=== PATIENT | male | born 1960 | race Caucasian/White ===

== ENCOUNTER 2022-01-27 18:13 | Inpatient (IN) ==
[2022-01-27 18:24] VITALS: BMI 34.2
[2022-01-27] MEDS ORDERED: CARDIZEM INJ 50 MG VIAL IVP ONE (18:25)
[2022-01-27] MEDS ORDERED: CARDIZEM INJ 125 MG VIAL ONE ×2 (18:26→18:28)
[2022-01-27] MEDS ORDERED: NS 100 ML IV 100 ML ONE (18:27)
[2022-01-27] MEDS: DILTIAZEM 125mg/125mL-0.7%NACL 125 MG/125 ML PLAST..BAG IV PRN (18:40)
[2022-01-27 18:46] LABS: HEMOGLOBIN 17.4 g/dL (13.5-18.0)
[2022-01-27 18:50] LABS: BASOPHILS # (AUTO) 0.1 X10^3/uL (0.0-0.1); BASOPHILS % (AUTO) 0.7 % (0.2-1.0); EOSINOPHILS # (AUTO) 0.5 x10^3/uL (0.0-0.2); EOSINOPHILS % (AUTO) 3.1 % (0.9-2.9); HEMATOCRIT 51.3 % (42.0-54.0); LYMPHOCYTES # (AUTO) 1.9 X10^3/uL (1.3-2.9); LYMPHOCYTES % (AUTO) 13.3 % (21.0-51.0); MEAN CORPUSCULAR HEMOGLOBIN 30.1 pg (27.0-34.0); MEAN CORPUSCULAR HGB CONC 33.9 g/dL (33.0-35.0); MEAN CORPUSCULAR VOLUME 88.8 fL (80.0-100.0); MEAN PLATELET VOLUME 8.1 fL (7.4-11.0); MONOCYTES % (AUTO) 6.6 % (0.0-13.0); NEUTROPHILS % (AUTO) 76.3 % (42.0-75.0); RED BLOOD COUNT 5.78 X10^6/uL (4.7-6.0); WHITE BLOOD COUNT 14.4 X10^3/uL (3.6-10.0)
--- NOTE | 2022-01-27 18:55 | DR.CP ---
HPI Time Seen Time Seen by Provider: 01/27/22 18:55 PCP Primary Care Physician: Dr. Hernandez Complaint Chief Complaint Doctor Comments: SOB, CHEST PAIN AND CHEST PRESSURE WITH HEART FLUTTERING THAT STARTED TODAY. WORSE THIS EVENING. NO FEVER OR COUGH HAVE GENERALIZED WEAKNESS. Chief Complaint:: pt reports, "I was feeling SOB and having some chest pain/ chest pressure at home so I called EMS." Per EMS patient was noted to be in AFib upon arrival with no known hx. Pt rec'd ASA 325 mg PO and pt reports the ASA helped with the CP. Pt placed on bus driver/monitor -noted afib with RVR- aware - pt A&O -STAT EKG ordered at this time. Source History Provided: Patient Mode of Arrival Mode of Arrival: Stretcher Timing Onset of Chief Complaint: 01/27/22 Location Chest Pain Radiation Location: None Associated Signs and Symptoms Associated Signs and Symptoms: Shortness of Breath, Palpitations and Diaphoresis PMH PMH Past Medical History: Yes Past Medical History: Coronary Artery Disease, Diabetes, Hypertension and Seizures Past Surgical History: Yes Surgical History: Angioplasty/Stents Family History History of Family Medical Conditions: Yes Family Medical History: Diabetes Mellitus, [place], Heart Failure and Hypertension Social History Alcohol Use: None Do you use any recreational Drugs:: No Lives With: Family Lives Where: Home Infectious screening In the last 2 months have you had wt loss of >10#?: NO Have you had fever, night sweats or hemotysis?: No Have you traveled outside the country in the last 6 months?: No Isolation: Standard PE Vitals Vitals: Temperature 97.7 F Pulse Rate 99 Respiratory Rate 26 Blood Pressure [Right Arm] 125/76 Blood Pressure 111/59 O2 Sat by Pulse Oximetry 95 ROR Labs Reviewed Result Diagrams: 01/27/22 18:30 01/27/22 18:30 Laboratory: WBC 14.4 X10^3/uL (3.6-10.0) H 01/27/22 18:30 RBC 5.78 X10^6/uL (4.7-6.0) 01/27/22 18:30 Hgb 17.4 g/dL (13.5-18.0) 01/27/22 18:30 Hct 51.3 % (42.0-54.0) 01/27/22 18:30 MCV 88.8 fL (80.0-100.0) 01/27/22 18:30 MCH 30.1 pg (27.0-34.0) 01/27/22 18: MCHC 33.9 g/dL (33.0-35.0) 01/27/22 18: RDW 14.0 % (11.6-16.5) 01/27/22 18: Plt Count 233 X10^3/uL (150.0-450.0) 01/27/22 18: MPV 8.1 fL (7.4-11.0) 01/27/22 18:30 Neut % (Auto) 76.3 % (42.0-75.0) H 01/27/22 18: Lymph % (Auto) 13.3 % (21.0-51.0) L 01/27/22 18: [place] % (Auto) 6.6 % (0.0-13.0) 01/27/22 18: Eos % (Auto) 3.1 % (0.9-2.9) H 01/27/22 18: Baso % (Auto) 0.7 % (0.2-1.0) 01/27/22 18:30 Neut # (Auto) 11.0 x10^3/uL (2.2-4.8) H 01/27/22 18:30 Lymph # (Auto) 1.9 X10^3/uL (1.3-2.9) 01/27/22 18:30 [place] # (Auto) 1.0 x10^3/uL (0.3-0.8) H 01/27/22 18:30 Eos # (Auto) 0.5 x10^3/uL (0.0-0.2) H 01/27/22 18:30 Baso # (Auto) 0.1 X10^3/uL (0.0-0.1) 01/27/22 18: Absolute Nucleated RBC 0.1 /100WBC 01/27/22 18:30 Sodium 134 mmol/L (136-145) L 01/27/22 18:30 Corrected Sodium 140 mmol/L (136-145) 01/27/22 18: Potassium 4.2 mmol/L (3.5-5.1) 01/27/22 18:30 Chloride 101 mmol/L (98-107) 01/27/22 18:30 Carbon Dioxide 22.1 mmol/L (21-32) 01/27/22 18:30 BUN 9 mg/dL (7-18) 01/27/22 18:30 Creatinine 1.15 mg/dL (0.70-1.30) 01/27/22 18:30 Est GFR (MDRD) Af Amer > 60 (>60) 01/27/22 18:30 Est GFR (MDRD) Non-Af > 60 (>60) 01/27/22 18:30 Glucose 347 mg/dL (65-99) H 01/27/22 18:30 POC Glucose (mg/dL) 243 mg/dL (65-99) H 01/28/22 01:25 Calcium 8.1 mg/dL (8.5-10.1) L 01/27/22 18:30 Corrected Calcium TNP 01/27/22 18:30 Total Bilirubin 0.70 mg/dL (0.2-1.0) 01/27/22 18:30 AST 36 Units/L (15-37) 01/27/22 18:30 ALT 44 Units/L (12-78) 01/27/22 18:30 Alkaline Phosphatase 132 Units/L (46-116) H 01/27/22 18:30 Creatine Kinase 44 Units/L (39-308) 01/27/22 18:30 Troponin I High Sens 41.6 ng/L (4.0-60.0) 01/27/22 18:30 B-Natriuretic Peptide 26.4 pg/mL (0-79) 01/27/22 18:30 Total Protein 7.6 g/dL (6.4-8.2) 01/27/22 18:30 Albumin 3.5 g/dL (3.4-5.0) 01/27/22 18:30 Globulin 4.1 g/dL (2.5-4.5) 01/27/22 18:30 Albumin/Globulin Ratio 0.9 Ratio (1.1-2.1) L 01/27/22 18:30 Specimen Type Clean catch urine 01/28/22 01:04 Urine Color Dark yellow (YELLOW) 01/28/22 01:04 Urine Appearance Slightly hazy (CLEAR) 01/28/22 01:04 Urine pH 5.0 (5.0 - 8.0) 01/28/22 01:04 Ur Specific [place] 1.025 (1.000-1.030) 01/28/22 01:04 Urine Protein 3+ (NEGATIVE) 01/28/22 01:04 Urine Glucose (UA) 4+ (NEGATIVE) 01/28/22 01:04 Urine Ketones 1+ (NEGATIVE) 01/28/22 01:04 Urine Blood 2+ (NEGATIVE) 01/28/22 01:04 Urine Nitrite Negative (NEGATIVE) 01/28/22 01:04 Urine Bilirubin Negative (NEGATIVE) 01/28/22 01:04 Urine Urobilinogen Normal (NORMAL) 01/28/22 01:04 Ur Leukocyte Esterase Negative (NEGATIVE) 01/28/22 01:04 Urine RBC 5-10 /HPF (0-3) A 01/28/22 01:04 Urine WBC 0-2 /HPF (0-5) 01/28/22 01:04 Ur Squamous Epith Cells Few /HPF (NEGATIVE) 01/28/22 01:04 Amorphous Sediment 1+ /HPF (NEGATIVE) 01/28/22 01:04 Urine Bacteria Trace /HPF (NEGATIVE) 01/28/22 01:04 Hyaline Casts Many /LPF (NEGATIVE) 01/28/22 01:04 Granular Casts Many /LPF (NEGATIVE) 01/28/22 01:04 Other Casts Few /LPF (NEGATIVE) 01/28/22 01:04 Urine Mucus Numerous /HPF (NEGATIVE) 01/28/22 01:04 Ur Culture Indicated? No/not indicated 01/28/22 01:04 Acetone, Semi-Quant Negative (NEGATIVE) 01/27/22 18:30 SARS-CoV-2 (PCR) Negative (NEGATIVE) 01/27/22 23:18 Influenza Type A (PCR) Negative (NEGATIVE) 01/27/22 23:18 Influenza Type B (PCR) Negative (NEGATIVE) 01/27/22 23:18 RSV (PCR) Negative (NEGATIVE) 01/27/22 23:18 Opioid Opioid Risk Tool Age (Sarmad box if 16-45): No History of Preadolescent Sexual Abuse: No Total: 0 Total Score Risk Category: Low Risk Copyright: Brenden KYLE predicting aberrant behaviors Discharge Plan Discharge Plan Patient Disposition: ADMITTED INPATIENT Condition: Stable Orders to Discharge Patient Discharge Orders: Transfer (Routine); Ordered 01/28/22 Ordered By: CANDACE BOB
[2022-01-27 19:03] LABS: ALANINE AMINOTRANSFERASE 44 Units/L (12-78); ALBUMIN 3.5 g/dL (3.4-5.0); ALKALINE PHOSPHATASE 132 Units/L (46-116); ASPARTATE AMINO TRANSFERASE 36 Units/L (15-37); BLOOD UREA NITROGEN 9 mg/dL (7-18); CALCIUM 8.1 mg/dL (8.5-10.1); CARBON DIOXIDE 22.1 mmol/L (21-32); CHLORIDE 101 mmol/L (98-107); COR NA(FOR HYPERGLY) 140 mmol/L (136-145); CREATINE KINASE 44 Units/L (39-308); CREATININE 1.15 mg/dL (0.70-1.30); SODIUM 134 mmol/L (136-145); TOTAL PROTEIN 7.6 g/dL (6.4-8.2); eGFR NON BLACK RACES > 60 (>60)
[2022-01-27] MEDS ORDERED: LOPRESSOR INJ 5 MG AMP IVP ONE (19:28)
[2022-01-27] MEDS ORDERED: LOPRESSOR INJ 5 MG AMP ONE (19:29)
[2022-01-27] MEDS ORDERED: NS 1,000 ML IV 1,000 ML IV ONE ×2 (19:49→20:22)
[2022-01-27] MEDS ORDERED: NS 1,000 ML IV 1,000 ML ONE ×3 (19:53→23:21)
[2022-01-27] MEDS: NS 1,000 ML IV 1,000 ML IV SCH (23:24)
[2022-01-28 01:22] LABS: APPEARANCE,URINE SLIGHTLY HAZY (CLEAR); BILIRUBIN,URINE NEGATIVE (NEGATIVE); BLOOD/HEMOGLOBIN,URINE 2+ (NEGATIVE); COLOR,URINE DARK YELLOW (YELLOW); GLUCOSE, URINE 4+ (NEGATIVE); KETONES,URINE 1+ (NEGATIVE); LEUKOCYTE ESTERASE ,URINE NEGATIVE (NEGATIVE); NITRITES,URINE NEGATIVE (NEGATIVE); PROTEIN,URINE 3+ (NEGATIVE); UROBILINOGEN,URINE NORMAL (NORMAL)
[2022-01-28 01:41] LABS: BACTERIA,URINE TRACE /HPF (NEGATIVE); GRANULAR CASTS,URINE MANY /LPF (NEGATIVE); HYALINE CASTS, URINE MANY /LPF (NEGATIVE); OTHER CASTS, URINE FEW /LPF (NEGATIVE); SQUAMOUS EPITHELIAL CELL,UR FEW /HPF (NEGATIVE)
[2022-01-28] MEDS ORDERED: LOPRESSOR TAB 25 MG PO ONE (02:19)
[2022-01-28] MEDS ORDERED: LOPRESSOR TAB 25 MG ONE (02:21)
--- NOTE | 2022-01-28 03:09 | RAD ---
HISTORY"I was feeling SOB and having some chest pain/ chest pressure at home so I called EMS." Per EMS patient was noted to be in AFib upon arrival with no known hx.STUDYCHEST, 1 VIEWCOMPARISONNone.TECHNIQUEA single frontal view of the chest was obtained.FINDINGSThere are multiple EKG leads and wires seen overlying the patient. There is mild to moderate cardiomegaly. There is no focal infiltrate. There is no effusion. There is no pneumothorax. The osseous structures are intact.IMPRESSIONNo focal infiltrate or effusion. Mild to moderate cardiomegaly.Electronically signed by: Breanne Nuñez (Jan 28, 2022 03:07:05)
[2022-01-28] MEDS ORDERED: GLUCOPHAGE ONE ×2 (08:23→20:41)
[2022-01-28] MEDS: ASPIRIN EC 81 MG PO SCH (08:24)
[2022-01-28] MEDS: LOPRESSOR TAB 25 MG PO SCH ×2 (08:24→21:23)
[2022-01-28] MEDS: GLUCOPHAGE PO SCH ×2 (08:24→21:23)
[2022-01-28] MEDS: PLAVIX PO SCH (08:24)
[2022-01-28] MEDS: NS 1,000 ML IV 1,000 ML IV SCH ×2 (08:24→15:49)
--- NOTE | 2022-01-28 17:53 | DR.H&P ---
H&P - History & Physical for Day of: H&P Date: 01/28/22 - Chief Complaint Chief Complaint: HEART RACING, SOB - History of Present Illness History of Present Illness: PT IS 61 WM, ER ADMISSION WITH CO SUDDEN ONSET OF HEART RACING AND SOB. PT WAS IN AFIB WITH RVR ON ARRIVAL TO ER. PT HAS PMH OF CAD, WITH 2 PREVIOUS KNOWN CARDIAC STENTS, LAST ONE PLACED AT [facility] IN [place]. PT HAS PMH OF DM AND 2PPD SMOKER. PT ADMITTED FOR TREATMENT AND EVALUATION OF ACUTE ILLNESS. - Past Medical History Past Medical History: Coronary Artery Disease, Hypertension, Diabetes, Seizures - Past Surgical History Surgical History: LICENSED NURSE PRACTITIONER Surgery - Family History Family Medical History: Diabetes Mellitus, Cancer - Social History Does patient currently use any type of tobacco product: Yes Have you used tobacco products in the last 12 months: Yes Type of Tobacco Use: Cigarettes How many years tobacco product used: 30 Does any household member use tobacco: No Alcohol Use: None - Medications Home Medications: No Known Drug Allergies Allergy (Verified 11/24/18 13:17) CONTINUE taking the following medications albuterol sulfate 90 mcg/actuation aerosol inhaler 1 - 2 inh inhalation PRN PRN 01/27/22 [History] venlafaxine 37.5 mg capsule,extended release 24 hr 1 cap PO DAILY 01/27/22 [History] - Review of Systems Constitutional: Weakness Eyes: No Symptoms Reported ENT: No Symptoms Reported Respiratory: Shortness of Breath Cardiovascular: Palpitations Gastrointestinal: Nausea Genitourinary: No Symptoms Reported Musculoskeletal: No Symptoms Reported Skin: No Symptoms Reported Neurological: No Symptoms Reported - Physical Exam Vital Signs: Temperature 98.0 F Pulse Rate [Right] 94 Pulse Rate 97 Respiratory Rate 22 Blood Pressure [Right Arm] 112/80 Blood Pressure 111/64 O2 Sat by Pulse Oximetry 95 Oriented: Normal Eyes: Normal Ear: Normal Nose: Normal Throat: Normal Respiratory: RLL Diminished, LLL Diminished Cardiovascular: Normal (CONTROLLED RATE AND RHYTHM) : Normal Auscultation: Bowel Sounds: Normal Palpation: Normal Tenderness: Normal Skin: Decreased Turgur Musculoskeletal: Deformity (LEFT UPPER EXTREMITY (CHRONIC)) Psychiatric: Anxiety Affect: Anxious Speech Pattern: Clear, Appropriate - Assessment/Plan (1) Atrial fibrillation with RVR Status: Acute Plan: ADMIT, ICU CARDIZEM DRIP. SERIAL EKG AND CARDIAC ENZYMES. PRN SUPPLEMENTAL O2. STRICT I&OS, BS CONTROL, SSI COVERAGE. BP CONTROL (2) SOB (shortness of breath) Status: Acute (3) CAD (coronary artery disease) Status: Acute (4) Diabetes Status: Acute (5) Hypertension Status: Acute - Allergies Allergies/Adverse Reactions: Allergies Allergy/AdvReac Type Severity Reaction Status Date / Time No Known Drug Allergies Allergy Verified 11/24/18 13:17
[2022-01-28] MEDS ORDERED: ULTRAM PO PRN (17:57)
[2022-01-28 18:32] LABS: ALANINE AMINOTRANSFERASE 45 Units/L (12-78); ALBUMIN 2.9 g/dL (3.4-5.0); ALKALINE PHOSPHATASE 103 Units/L (46-116); ASPARTATE AMINO TRANSFERASE 22 Units/L (15-37); BLOOD UREA NITROGEN 12 mg/dL (7-18); CALCIUM 7.4 mg/dL (8.5-10.1); CARBON DIOXIDE 22.2 mmol/L (21-32); CHLORIDE 105 mmol/L (98-107); COR CA(FOR HYPOALB) 8.3 mg/dL (8.5-10.1); CREATININE 0.94 mg/dL (0.70-1.30); SODIUM 136 mmol/L (136-145); TOTAL PROTEIN 6.4 g/dL (6.4-8.2); eGFR NON BLACK RACES > 60 (>60)
[2022-01-28 18:35] LABS: FREE T4 (FREE THYROXINE) 7.4 ng/dL (0.76-1.46); TSH (3RD GENERATION) 0.432 uIU/mL (0.358-3.74)
[2022-01-28 18:40] LABS: COR NA(FOR HYPERGLY) 139 mmol/L (136-145)
[2022-01-28] MEDS: ZESTRIL TAB 5 MG PO SCH (21:22)
[2022-01-28] MEDS: LIPITOR TAB 40 MG PO SCH (21:23)
--- NOTE | 2022-01-29 00:34 | RAD ---
HISTORYCHFSTUDYCHEST, 1 VIEWCOMPARISONSeptember 2021.TECHNIQUEA single frontal view of the chest was obtained.FINDINGSThere are multiple EKG leads and wires seen overlying the patient. There is cardiomegaly. There is no focal infiltrate. There is no effusion. There is no pneumothorax. The osseous structures are intact.IMPRESSIONNo focal infiltrate or effusion.Electronically signed by: Breanne Nuñez (Jan 29, 2022 00:32:39)
[2022-01-29] MEDS ORDERED: MAALOX or MYLANTA ONE (01:58)
[2022-01-29] MEDS: NS 1,000 ML IV 1,000 ML IV SCH ×5 (02:00→20:25)
[2022-01-29] MEDS ORDERED: MAALOX or MYLANTA PO PRN (03:07)
[2022-01-29 05:41] LABS: BASOPHILS % (AUTO) 0.2 % (0.2-1.0); EOSINOPHILS % (AUTO) 0.1 % (0.9-2.9); HEMATOCRIT 46.3 % (42.0-54.0); HEMOGLOBIN 15.6 g/dL (13.5-18.0); LYMPHOCYTES # (AUTO) 0.5 X10^3/uL (1.3-2.9); LYMPHOCYTES % (AUTO) 3.8 % (21.0-51.0); MEAN CORPUSCULAR HEMOGLOBIN 29.6 pg (27.0-34.0); MEAN CORPUSCULAR HGB CONC 33.6 g/dL (33.0-35.0); MEAN PLATELET VOLUME 8.2 fL (7.4-11.0); MONOCYTES # (AUTO) 1.1 x10^3/uL (0.3-0.8); MONOCYTES % (AUTO) 8.4 % (0.0-13.0); NEUTROPHILS # (AUTO) 11.9 x10^3/uL (2.2-4.8); NEUTROPHILS % (AUTO) 87.5 % (42.0-75.0); RED BLOOD COUNT 5.26 X10^6/uL (4.7-6.0); RED CELL DISTRIBUTION WIDTH 14.2 % (11.6-16.5); WHITE BLOOD COUNT 13.6 X10^3/uL (3.6-10.0)
[2022-01-29 06:04] LABS: ALANINE AMINOTRANSFERASE 43 Units/L (12-78); ALKALINE PHOSPHATASE 99 Units/L (46-116); ASPARTATE AMINO TRANSFERASE 23 Units/L (15-37); BLOOD UREA NITROGEN 11 mg/dL (7-18); CALCIUM 7.6 mg/dL (8.5-10.1); CARBON DIOXIDE 21.1 mmol/L (21-32); CHLORIDE 101 mmol/L (98-107); CHOL/HDL RATIO 4.8 (0.0-5.0); CHOLESTEROL 126 mg/dL (0-200); COR CA(FOR HYPOALB) 8.4 mg/dL (8.5-10.1); COR NA(FOR HYPERGLY) 136 mmol/L (136-145); CREATININE 0.84 mg/dL (0.70-1.30); HDL CHOLESTEROL 26 mg/dL (40-60); SODIUM 134 mmol/L (136-145); TOTAL PROTEIN 6.6 g/dL (6.4-8.2); TRIGLYCERIDES 97 mg/dL (0-150); eGFR NON BLACK RACES > 60 (>60)
[2022-01-29] MEDS ORDERED: MICRO K EXTEN CAP 10 MEQ PO PRN (06:22)
[2022-01-29] MEDS ORDERED: POTASSIUM CHL 40 MEQ/NS 0.45% 500 ML IV PRN (06:22)
[2022-01-29] MEDS ORDERED: POTASSIUM CHL 60 MEQ/NS 0.45% 500 ML IV PRN (06:22)
[2022-01-29] MEDS ORDERED: POTASSIUM CHLORIDE LIQ 20 MEQ UDC PO PRN (06:22)
[2022-01-29] MEDS ORDERED: KLOR-CON PO PRN (06:22)
[2022-01-29] MEDS ORDERED: K-RIDER 10 MEQ/NS 100 ML 10 MEQ/100 ML BAG IV PRN (06:22)
[2022-01-29] MEDS: DILTIAZEM 125mg/125mL-0.7%NACL 125 MG/125 ML PLAST..BAG IV PRN (07:17)
[2022-01-29] MEDS: PROVENTIL NEB TX 0.083% 2.5MG/ 3ML NEB PRN ×2 (08:28→20:25)
[2022-01-29] MEDS ORDERED: GLUCOPHAGE ONE ×2 (08:34→19:59)
[2022-01-29] MEDS: EFFEXOR XR 37.5 MG CAP 24-HR PO SCH (08:36)
[2022-01-29] MEDS: ASPIRIN EC 81 MG PO SCH (08:36)
[2022-01-29] MEDS: GLUCOPHAGE PO SCH ×3 (08:37→20:26)
[2022-01-29] MEDS: LOPRESSOR TAB 25 MG PO SCH ×2 (08:38→20:48)
[2022-01-29] MEDS: ZESTRIL TAB 5 MG PO SCH (08:38)
[2022-01-29] MEDS: PLAVIX PO SCH (08:38)
[2022-01-29] MEDS: K-DUR TAB 20 MEQ PO PRN (08:40)
[2022-01-29] MEDS: ROCEPHIN VIAL 1 GRAM 1 G in NS 100 ML IV 100 ML IV SCH (14:34)
[2022-01-29] MEDS: MAGNESIUM SULFATE 1 GRAM/100 mL PREMIX 1 G/100 ML BAG IV PRN ×2 (15:51→16:54)
--- NOTE | 2022-01-29 17:46 | PCM.PROG ---
Progress Note - Progress Note for Day of Date of Exam: 01/29/22 - Subjective Subjective: PT IS 61WM ER ADMISSION WITH AFIB RVR SOB. PT HAS PMH OF CAD. PT DENIES CHEST PAIN SINCE ADMISSION. PT CO DIARRHEA THIS AM AND ASKING FOR LOMOTIL. PT REPORTS HIS DAUGHTER CURRENTLY HAS COVID AND HE LIVES WITH HER. PT TESTED NEGATIVE FOR COVID ON ADMISSION BUT HAD CHEST CONGESTION PRESENT. CXR WITHOUT ACUTE FINDINGS. PT STARTED ON ROCEPHIN IV AND SPUTUM CULTURE ORDERED. PLAN TO CONTINUE SERIAL CE AND EKG MONITORING, BP CONTROL - Past Medical Family Social History Past Med/Fam/Surg Hx: Changes noted (describe) Allergies: Allergies No Known Drug Allergies Allergy (Verified 11/24/18 13:17) - Review of Systems ROS: No change since H&P - Vital Signs and I&O's Vital Signs: Temperature 98.8 F Pulse Rate [Right] 110 Pulse Rate 92 Respiratory Rate 4 Blood Pressure [Right Arm] 114/64 Blood Pressure 96/54 O2 Sat by Pulse Oximetry 94 Intake and Output: Intake & Output 01/27/22 01/28/22 01/29/22 01/30/22 11:59 11:59 11:59 11:59 Intake Total 1845 / 1845 3687 / 3687 1322 / 1322 Output Total 400 / 400 1300 / 1300 800 / 800 Balance 1445 / 1445 2387 / 2387 522 / 522 - Physical Exam Oriented: Normal Eyes: Normal Ear: Normal Nose: Normal Throat: Normal Respiratory: Diminished, Rhonchi Cardiovascular: Normal (CONTROLLED RATE AND RHYTHM) : Normal Auscultation: Bowel Sounds: Normal Tenderness: Normal Skin: Decreased Turgur Musculoskeletal: Deformity (LEFT UPPER EXTREMITY (CHRONIC)) Psychiatric: Anxiety Affect: Anxious Speech Pattern: Clear, Appropriate - Laboratory and Diagnostics Result Diagrams: 01/29/22 04:55 01/29/22 04:55 Labs: Laboratory WBC 13.6 X10^3/uL (3.6-10.0) H 01/29/22 04:55 RBC 5.26 X10^6/uL (4.7-6.0) 01/29/22 04:55 Hgb 15.6 g/dL (13.5-18.0) 01/29/22 04:55 Hct 46.3 % (42.0-54.0) 01/29/22 04:55 MCV 88.0 fL (80.0-100.0) 01/29/22 04:55 MCH 29.6 pg (27.0-34.0) 01/29/22 04:55 MCHC 33.6 g/dL (33.0-35.0) 01/29/22 04:55 RDW 14.2 % (11.6-16.5) 01/29/22 04:55 Plt Count 151 X10^3/uL (150.0-450.0) 01/29/22 04:55 MPV 8.2 fL (7.4-11.0) 01/29/22 04:55 Neut % (Auto) 87.5 % (42.0-75.0) H 01/29/22 04:55 Lymph % (Auto) 3.8 % (21.0-51.0) L 01/29/22 04:55 [place] % (Auto) 8.4 % (0.0-13.0) 01/29/22 04:55 Eos % (Auto) 0.1 % (0.9-2.9) L 01/29/22 04:55 Baso % (Auto) 0.2 % (0.2-1.0) 01/29/22 04:55 Neut # (Auto) 11.9 x10^3/uL (2.2-4.8) H 01/29/22 04:55 Lymph # (Auto) 0.5 X10^3/uL (1.3-2.9) L 01/29/22 04:55 [place] # (Auto) 1.1 x10^3/uL (0.3-0.8) H 01/29/22 04:55 Eos # (Auto) 0.0 x10^3/uL (0.0-0.2) 01/29/22 04:55 Baso # (Auto) 0.0 X10^3/uL (0.0-0.1) 01/29/22 04:55 Absolute Nucleated RBC 0.0 /100WBC 01/29/22 04:55 Sodium 134 mmol/L (136-145) L 01/29/22 04:55 Corrected Sodium 136 mmol/L (136-145) 01/29/22 04:55 Potassium 3.7 mmol/L (3.5-5.1) 01/29/22 04:55 Chloride 101 mmol/L (98-107) 01/29/22 04:55 Carbon Dioxide 21.1 mmol/L (21-32) 01/29/22 04:55 BUN 11 mg/dL (7-18) 01/29/22 04:55 Creatinine 0.84 mg/dL (0.70-1.30) 01/29/22 04:55 Est GFR (MDRD) Af Amer > 60 (>60) 01/29/22 04:55 Est GFR (MDRD) Non-Af > 60 (>60) 01/29/22 04:55 Glucose 187 mg/dL (65-99) H 01/29/22 04:55 POC Glucose (mg/dL) 223 mg/dL (65-99) H 01/29/22 15:45 Calcium 7.6 mg/dL (8.5-10.1) L 01/29/22 04:55 Corrected Calcium 8.4 mg/dL (8.5-10.1) L 01/29/22 04:55 Magnesium 1.7 mg/dL (1.7-2.9) 01/29/22 04:55 Total Bilirubin 0.70 mg/dL (0.2-1.0) 01/29/22 04:55 AST 23 Units/L (15-37) 01/29/22 04:55 ALT 43 Units/L (12-78) 01/29/22 04:55 Alkaline Phosphatase 99 Units/L (46-116) 01/29/22 04:55 Creatine Kinase 57 Units/L (39-308) 01/29/22 04:55 Troponin I High Sens 288.4 ng/L (4.0-60.0) H* 01/29/22 04:55 B-Natriuretic Peptide 26.4 pg/mL (0-79) 01/27/22 18:30 Total Protein 6.6 g/dL (6.4-8.2) 01/29/22 04:55 Albumin 3.0 g/dL (3.4-5.0) L 01/29/22 04:55 Globulin 3.6 g/dL (2.5-4.5) 01/29/22 04:55 Albumin/Globulin Ratio 0.8 Ratio (1.1-2.1) L 01/29/22 04:55 Triglycerides 97 mg/dL (0-150) 01/29/22 04:55 Cholesterol 126 mg/dL (0-200) 01/29/22 04:55 LDL Cholesterol, Calc 81 mg/dL (0-100) 01/29/22 04:55 HDL Cholesterol 26 mg/dL (40-60) L 01/29/22 04:55 Cholesterol/HDL Ratio 4.8 (0.0-5.0) 01/29/22 04:55 Free T4 7.40 ng/dL (0.76-1.46) H 01/28/22 17:58 TSH 3rd Generation 0.432 uIU/mL (0.358-3.74) 01/28/22 17:58 Specimen Type Clean catch urine 01/28/22 01:04 Urine Color Dark yellow (YELLOW) 01/28/22 01:04 Urine Appearance Slightly hazy (CLEAR) 01/28/22 01:04 Urine pH 5.0 (5.0 - 8.0) 01/28/22 01:04 Ur Specific [place] 1.025 (1.000-1.030) 01/28/22 01:04 Urine Protein 3+ (NEGATIVE) 01/28/22 01:04 Urine Glucose (UA) 4+ (NEGATIVE) 01/28/22 01:04 Urine Ketones 1+ (NEGATIVE) 01/28/22 01:04 Urine Blood 2+ (NEGATIVE) 01/28/22 01:04 Urine Nitrite Negative (NEGATIVE) 01/28/22 01:04 Urine Bilirubin Negative (NEGATIVE) 01/28/22 01:04 Urine Urobilinogen Normal (NORMAL) 01/28/22 01:04 Ur Leukocyte Esterase Negative (NEGATIVE) 01/28/22 01:04 Urine RBC 5-10 /HPF (0-3) A 01/28/22 01:04 Urine WBC 0-2 /HPF (0-5) 01/28/22 01:04 Ur Squamous Epith Cells Few /HPF (NEGATIVE) 01/28/22 01:04 Amorphous Sediment 1+ /HPF (NEGATIVE) 01/28/22 01:04 Urine Bacteria Trace /HPF (NEGATIVE) 01/28/22 01:04 Hyaline Casts Many /LPF (NEGATIVE) 01/28/22 01:04 Granular Casts Many /LPF (NEGATIVE) 01/28/22 01:04 Other Casts Few /LPF (NEGATIVE) 01/28/22 01:04 Urine Mucus Numerous /HPF (NEGATIVE) 01/28/22 01:04 Ur Culture Indicated? No/not indicated 01/28/22 01:04 Acetone, Semi-Quant Negative (NEGATIVE) 01/27/22 18:30 SARS-CoV-2 (PCR) Negative (NEGATIVE) 01/27/22 23:18 Influenza Type A (PCR) Negative (NEGATIVE) 01/27/22 23:18 Influenza Type B (PCR) Negative (NEGATIVE) 01/27/22 23:18 RSV (PCR) Negative (NEGATIVE) 01/27/22 23:18 - Plan (1) Atrial fibrillation with RVR Status: Acute Plan: ICU, CARDIZEM PO, RATE CONTROL. ECHO. SERIAL EKG AND CARDIAC ENZYMES. PRN SUPPLEMENTAL O2. STRICT I&OS, BS CONTROL, SSI COVERAGE. BP CONTROL (2) COPD (chronic obstructive pulmonary disease) with acute bronchitis Status: Acute Plan: IV ATBX, SPUTUM CULTURE, RESP CONSULT (3) SOB (shortness of breath) Status: Acute (4) CAD (coronary artery disease) Status: Acute (5) Diabetes Status: Acute (6) Hypertension Status: Acute
[2022-01-29] MEDS ORDERED: NS 1,000 ML IV 1,000 ML IV SCH (18:00)
[2022-01-29] MEDS: LIPITOR TAB 40 MG PO SCH (20:26)
[2022-01-29] MEDS: LOVENOX INJ 40 MG SYR SC SCH (20:27)
[2022-01-30 05:38] LABS: BASOPHILS # (AUTO) 0.1 X10^3/uL (0.0-0.1); BASOPHILS % (AUTO) 0.8 % (0.2-1.0); EOSINOPHILS % (AUTO) 0.3 % (0.9-2.9); HEMATOCRIT 44.2 % (42.0-54.0); HEMOGLOBIN 15.2 g/dL (13.5-18.0); LYMPHOCYTES % (AUTO) 10.7 % (21.0-51.0); MEAN CORPUSCULAR HEMOGLOBIN 29.8 pg (27.0-34.0); MEAN CORPUSCULAR HGB CONC 34.3 g/dL (33.0-35.0); MEAN PLATELET VOLUME 8.3 fL (7.4-11.0); MONOCYTES # (AUTO) 1.2 x10^3/uL (0.3-0.8); MONOCYTES % (AUTO) 13.5 % (0.0-13.0); NEUTROPHILS # (AUTO) 6.7 x10^3/uL (2.2-4.8); NEUTROPHILS % (AUTO) 74.7 % (42.0-75.0); RED BLOOD COUNT 5.08 X10^6/uL (4.7-6.0); RED CELL DISTRIBUTION WIDTH 13.7 % (11.6-16.5); WHITE BLOOD COUNT 8.9 X10^3/uL (3.6-10.0)
[2022-01-30 05:51] LABS: ALANINE AMINOTRANSFERASE 34 Units/L (12-78); ALBUMIN 2.8 g/dL (3.4-5.0); ALKALINE PHOSPHATASE 87 Units/L (46-116); ASPARTATE AMINO TRANSFERASE 20 Units/L (15-37); BLOOD UREA NITROGEN 10 mg/dL (7-18); CALCIUM 7.4 mg/dL (8.5-10.1); CARBON DIOXIDE 25.4 mmol/L (21-32); CHLORIDE 100 mmol/L (98-107); COR CA(FOR HYPOALB) 8.4 mg/dL (8.5-10.1); COR NA(FOR HYPERGLY) 132 mmol/L (136-145); CREATININE 0.77 mg/dL (0.70-1.30); MAGNESIUM 2.1 mg/dL (1.7-2.9); SODIUM 132 mmol/L (136-145); TOTAL PROTEIN 6.5 g/dL (6.4-8.2); eGFR NON BLACK RACES > 60 (>60)
--- NOTE | 2022-01-30 07:04 | RAD ---
HISTORYCHEST PAIN, SOBSTUDYCHEST, 1 [id number]/20/2022.TECHNIQUEAP view of the chestFINDINGSThe cardiac silhouette is stably enlarged. Mediastinal contours appear stable. No consolidation or segmental lung collapse. Patient is rotated No definite pleural effusion or pneumothorax.IMPRESSIONNo significant change compared to prior radiograph. Cardiomegaly.Electronically signed by: Marty Almanza (Jan 30, 2022 07:03:03)
[2022-01-30] MEDS ORDERED: GLUCOPHAGE ONE ×2 (08:29→18:57)
[2022-01-30] MEDS: ASPIRIN EC 81 MG PO SCH (08:33)
[2022-01-30] MEDS: LOPRESSOR TAB 25 MG PO SCH ×2 (08:34→20:11)
[2022-01-30] MEDS: GLUCOPHAGE PO SCH ×2 (08:34→20:11)
[2022-01-30] MEDS: EFFEXOR XR 37.5 MG CAP 24-HR PO SCH (08:34)
[2022-01-30] MEDS: PLAVIX PO SCH (08:35)
[2022-01-30] MEDS: LOVENOX INJ 40 MG SYR SC SCH (08:35)
[2022-01-30] MEDS: ROCEPHIN VIAL 1 GRAM 1 G in NS 100 ML IV 100 ML IV SCH (08:35)
[2022-01-30] MEDS: ZESTRIL TAB 5 MG PO SCH (08:35)
[2022-01-30] MEDS: CARDIZEM CD 120 MG 24-HR PO SCH (13:22)
[2022-01-30] MEDS: NS 1,000 ML IV 1,000 ML IV SCH (17:37)
[2022-01-30] MEDS: LIPITOR TAB 40 MG PO SCH (20:10)
[2022-01-30] MEDS: ELIQUIS PO SCH (20:11)
[2022-01-31 05:37] LABS: BASOPHILS % (AUTO) 0.5 % (0.2-1.0); EOSINOPHILS % (AUTO) 0.3 % (0.9-2.9); HEMATOCRIT 42.4 % (42.0-54.0); HEMOGLOBIN 14.6 g/dL (13.5-18.0); LYMPHOCYTES # (AUTO) 0.8 X10^3/uL (1.3-2.9); LYMPHOCYTES % (AUTO) 14.1 % (21.0-51.0); MEAN CORPUSCULAR HEMOGLOBIN 29.9 pg (27.0-34.0); MEAN CORPUSCULAR HGB CONC 34.5 g/dL (33.0-35.0); MEAN CORPUSCULAR VOLUME 86.6 fL (80.0-100.0); MEAN PLATELET VOLUME 8.4 fL (7.4-11.0); MONOCYTES # (AUTO) 0.7 x10^3/uL (0.3-0.8); MONOCYTES % (AUTO) 12.1 % (0.0-13.0); NEUTROPHILS # (AUTO) 4.1 x10^3/uL (2.2-4.8); RED BLOOD COUNT 4.89 X10^6/uL (4.7-6.0); RED CELL DISTRIBUTION WIDTH 13.9 % (11.6-16.5); WHITE BLOOD COUNT 5.5 X10^3/uL (3.6-10.0)
[2022-01-31] MEDS: NS 1,000 ML IV 1,000 ML IV SCH ×3 (05:44→23:06)
[2022-01-31 06:08] LABS: ALANINE AMINOTRANSFERASE 32 Units/L (12-78); ALBUMIN 2.5 g/dL (3.4-5.0); ALKALINE PHOSPHATASE 82 Units/L (46-116); ASPARTATE AMINO TRANSFERASE 25 Units/L (15-37); BLOOD UREA NITROGEN 8 mg/dL (7-18); CALCIUM 6.9 mg/dL (8.5-10.1); CHLORIDE 97 mmol/L (98-107); COR CA(FOR HYPOALB) 8.1 mg/dL (8.5-10.1); COR NA(FOR HYPERGLY) 131 mmol/L (136-145); CREATINE KINASE 61 Units/L (39-308); CREATININE 0.68 mg/dL (0.70-1.30); SODIUM 130 mmol/L (136-145); eGFR NON BLACK RACES > 60 (>60)
[2022-01-31] MEDS ORDERED: GLUCOPHAGE ONE (07:59)
[2022-01-31] MEDS: ASPIRIN EC 81 MG PO SCH (08:06)
[2022-01-31] MEDS: GLUCOPHAGE PO SCH (08:07)
[2022-01-31] MEDS: CARDIZEM CD 120 MG 24-HR PO SCH (08:07)
[2022-01-31] MEDS: EFFEXOR XR 37.5 MG CAP 24-HR PO SCH (08:07)
[2022-01-31] MEDS: PLAVIX PO SCH (08:08)
[2022-01-31] MEDS: LOPRESSOR TAB 25 MG PO SCH ×2 (08:08→20:06)
[2022-01-31] MEDS: ELIQUIS PO SCH ×2 (08:08→20:06)
[2022-01-31] MEDS: ZESTRIL TAB 5 MG PO SCH (08:09)
[2022-01-31] MEDS: K-DUR TAB 20 MEQ PO PRN (08:09)
[2022-01-31] MEDS: ROCEPHIN VIAL 1 GRAM 1 G in NS 100 ML IV 100 ML IV SCH (08:09)
[2022-01-31] MEDS: IMODIUM CAP 2 MG PO PRN (11:22)
[2022-01-31 11:45] LABS: CRYPTOSPORIDIUM PARVUM ANTIGEN NEGATIVE (NEGATIVE); GIARDIA LAMBLIA ANTIGEN NEGATIVE (NEGATIVE)
[2022-01-31] MEDS: LIPITOR TAB 40 MG PO SCH (20:06)
[2022-02-01 05:01] LABS: BASOPHILS % (AUTO) 0.7 % (0.2-1.0); EOSINOPHILS % (AUTO) 0.9 % (0.9-2.9); HEMATOCRIT 42.8 % (42.0-54.0); HEMOGLOBIN 15.2 g/dL (13.5-18.0); LYMPHOCYTES # (AUTO) 1.2 X10^3/uL (1.3-2.9); LYMPHOCYTES % (AUTO) 27.6 % (21.0-51.0); MEAN CORPUSCULAR HEMOGLOBIN 30.6 pg (27.0-34.0); MEAN CORPUSCULAR HGB CONC 35.5 g/dL (33.0-35.0); MEAN CORPUSCULAR VOLUME 86.1 fL (80.0-100.0); MEAN PLATELET VOLUME 8.3 fL (7.4-11.0); MONOCYTES # (AUTO) 0.7 x10^3/uL (0.3-0.8); MONOCYTES % (AUTO) 17.2 % (0.0-13.0); NEUTROPHILS # (AUTO) 2.3 x10^3/uL (2.2-4.8); NEUTROPHILS % (AUTO) 53.6 % (42.0-75.0); RED BLOOD COUNT 4.97 X10^6/uL (4.7-6.0); RED CELL DISTRIBUTION WIDTH 13.9 % (11.6-16.5); WHITE BLOOD COUNT 4.2 X10^3/uL (3.6-10.0)
[2022-02-01 05:15] LABS: ALANINE AMINOTRANSFERASE 32 Units/L (12-78); ALBUMIN 2.6 g/dL (3.4-5.0); ALKALINE PHOSPHATASE 89 Units/L (46-116); ASPARTATE AMINO TRANSFERASE 29 Units/L (15-37); BLOOD UREA NITROGEN 8 mg/dL (7-18); CALCIUM 7.2 mg/dL (8.5-10.1); CARBON DIOXIDE 26.5 mmol/L (21-32); CHLORIDE 102 mmol/L (98-107); COR CA(FOR HYPOALB) 8.3 mg/dL (8.5-10.1); CREATININE 0.74 mg/dL (0.70-1.30); SODIUM 135 mmol/L (136-145); TOTAL PROTEIN 6.2 g/dL (6.4-8.2); eGFR NON BLACK RACES > 60 (>60)
[2022-02-01] MEDS: PROVENTIL NEB TX 0.083% 2.5MG/ 3ML NEB PRN (08:45)
[2022-02-01] MEDS: ASPIRIN EC 81 MG PO SCH (08:57)
[2022-02-01] MEDS: CARDIZEM CD 120 MG 24-HR PO SCH (08:57)
[2022-02-01] MEDS: EFFEXOR XR 37.5 MG CAP 24-HR PO SCH (08:57)
[2022-02-01] MEDS: ELIQUIS PO SCH (08:57)
[2022-02-01] MEDS: LOPRESSOR TAB 25 MG PO SCH (08:57)
[2022-02-01] MEDS: ROCEPHIN VIAL 1 GRAM 1 G in NS 100 ML IV 100 ML IV SCH (08:58)
[2022-02-01] MEDS: PLAVIX PO SCH (08:58)
[2022-02-01] MEDS: IMODIUM CAP 2 MG PO PRN (09:07)
--- NOTE | 2022-02-01 10:51 | W.DIS.FURT ---
Summary of Discharge Discharge Summary of Date Date of Exam: 02/01/22 Admission Date Date of Admission: 01/28/22 Admission Diagnosis Patient Problems (Updated 02/07/22 @ 10:53 by Ewelina Waterman) Atrial fibrillation with RVR (Acute) I48.91 SOB (shortness of breath) (Acute) R06.02 CAD (coronary artery disease) (Chronic) I25.10 Diabetes (Chronic) E11.9 Hypertension (Chronic) I10 COPD (chronic obstructive pulmonary disease) with acute bronchitis (Acute) J44.0, J20.9 Hospital Course: Mr Perez is a 61y/o male with a PMH of atrial fibrillation, CAD s/p PCI, HTN, HLD, DM and spinal injury and decreased mobility presented with palpitations and SOB. He was found to be in atrial fibrillation with RVR. He was placed in the ICU with telemetry for further evaluation. He was started on Cardizem drip and his HR was monitored closely. All his home medications were reumed. Labs were done daily and electrolytes replaced as needed. Patient converted to NSR. He was switched to PO Cardizem. ECHO was also done which showed EF 63% and mild pulmonary HTN. He sees Dr Shetty and had outpatient stress test a year ago which was normal. He was started on Eliquis 5 mg daily. He denied any hx of GI bleed. He was also treated with IV Rocephin and nebs for bronchitis/COPD exacerbation. He was stable for discharge home. He did not require any supplemental O2 on discharge, O2 sats > 92%. Patient was already taking asa and plavix, last stent over 2 years ago. He was told to stop plavix and only take asa and Eliquis. He will follow up with PCP and cardiology as scheduled. Vital Signs: Vital Signs (72 hours) 01/29/22 11:00 01/29/22 11:00 01/29/22 11:15 Temperature Pulse Rate 110 H 110 H Pulse Rate [Right] Respiratory Rate 33 H 35 H Blood Pressure 120/68 Blood Pressure [Right Arm] O2 Sat by Pulse Oximetry 92 L 93 L Oxygen Delivery Method Oxygen Flow Rate FIO2% 01/29/22 11:30 01/29/22 11:45 01/29/22 12:00 Temperature Pulse Rate 105 H 104 H Pulse Rate [Right] Respiratory Rate 27 H 26 H Blood Pressure 114/64 Blood Pressure [Right Arm] O2 Sat by Pulse Oximetry 94 L 95 Oxygen Delivery Method Oxygen Flow Rate FIO2% 01/29/22 12:00 01/29/22 11:00 01/29/22 12:00 Temperature 98.1 F Pulse Rate 110 H Pulse Rate [Right] 110 H 110 H Respiratory Rate 27 H 22 22 Blood Pressure Blood Pressure [Right Arm] 120/68 114/64 O2 Sat by Pulse Oximetry 96 92 L 96 Oxygen Delivery Method Nasal Cannula Nasal Cannula Oxygen Flow Rate FIO2% 01/29/22 12:15 01/29/22 12:30 01/29/22 12:45 Temperature Pulse Rate 103 H 101 H 100 H Pulse Rate [Right] Respiratory Rate 29 H 25 H 32 H Blood Pressure Blood Pressure [Right Arm] O2 Sat by Pulse Oximetry 95 92 L 93 L Oxygen Delivery Method Oxygen Flow Rate FIO2% 01/29/22 13:00 01/29/22 13:00 01/29/22 13:15 Temperature Pulse Rate 97 H 100 H Pulse Rate [Right] Respiratory Rate 28 H 38 H Blood Pressure 113/69 Blood Pressure [Right Arm] O2 Sat by Pulse Oximetry 92 L 94 L Oxygen Delivery Method Oxygen Flow Rate FIO2% 01/29/22 13:30 01/29/22 13:45 01/29/22 14:00 Temperature Pulse Rate 101 H 102 H Pulse Rate [Right] Respiratory Rate 35 H 31 H Blood Pressure 114/77 Blood Pressure [Right Arm] O2 Sat by Pulse Oximetry 94 L 92 L Oxygen Delivery Method Oxygen Flow Rate FIO2% 01/29/22 14:00 01/29/22 14:15 01/29/22 14:30 Temperature Pulse Rate 101 H 99 H 100 H Pulse Rate [Right] Respiratory Rate 36 H 9 L 37 H Blood Pressure Blood Pressure [Right Arm] O2 Sat by Pulse Oximetry 92 L 94 L 93 L Oxygen Delivery Method Oxygen Flow Rate FIO2% 01/29/22 14:45 01/29/22 15:00 01/29/22 15:00 Temperature Pulse Rate 100 H 98 H Pulse Rate [Right] Respiratory Rate 29 H 29 H Blood Pressure 107/63 Blood Pressure [Right Arm] O2 Sat by Pulse Oximetry 93 L 91 L Oxygen Delivery Method Oxygen Flow Rate FIO2% 01/29/22 15:15 01/29/22 15:30 01/29/22 15:45 Temperature Pulse Rate 98 H 94 H 99 H Pulse Rate [Right] Respiratory Rate 27 H 25 H 34 H Blood Pressure Blood Pressure [Right Arm] O2 Sat by Pulse Oximetry 91 L 94 L 93 L Oxygen Delivery Method Nasal Cannula Oxygen Flow Rate 2 FIO2% 01/29/22 16:00 01/29/22 16:00 01/29/22 16:15 Temperature 98.8 F Pulse Rate 94 H 94 H Pulse Rate [Right] Respiratory Rate 26 H 28 H Blood Pressure 108/65 Blood Pressure [Right Arm] O2 Sat by Pulse Oximetry 93 L 92 L Oxygen Delivery Method Nasal Cannula Oxygen Flow Rate 2 FIO2% 01/29/22 16:30 01/29/22 16:45 01/29/22 17:00 Temperature Pulse Rate 95 H 94 H Pulse Rate [Right] Respiratory Rate 30 H 29 H Blood Pressure 96/54 Blood Pressure [Right Arm] O2 Sat by Pulse Oximetry 91 L 92 L Oxygen Delivery Method Oxygen Flow Rate FIO2% 01/29/22 17:00 01/29/22 17:15 01/29/22 17:30 Temperature Pulse Rate 94 H 92 H 90 Pulse Rate [Right] Respiratory Rate 28 H 4 L 25 H Blood Pressure Blood Pressure [Right Arm] O2 Sat by Pulse Oximetry 93 L 94 L 95 Oxygen Delivery Method Oxygen Flow Rate FIO2% 01/29/22 17:45 01/29/22 18:00 01/29/22 18:00 Temperature Pulse Rate 92 H 96 H Pulse Rate [Right] Respiratory Rate 26 H 17 Blood Pressure 88/68 Blood Pressure [Right Arm] O2 Sat by Pulse Oximetry 95 94 L Oxygen Delivery Method Oxygen Flow Rate FIO2% 01/29/22 18:15 01/29/22 18:30 01/29/22 18:45 Temperature Pulse Rate 85 87 88 Pulse Rate [Right] Respiratory Rate 19 24 25 H Blood Pressure Blood Pressure [Right Arm] O2 Sat by Pulse Oximetry 96 92 L 92 L Oxygen Delivery Method Oxygen Flow Rate FIO2% 01/29/22 19:00 01/29/22 19:01 01/29/22 19:01 Temperature Pulse Rate 86 88 Pulse Rate [Right] Respiratory Rate 23 24 Blood Pressure 110/68 Blood Pressure [Right Arm] O2 Sat by Pulse Oximetry 91 L 92 L Oxygen Delivery Method Oxygen Flow Rate FIO2% 01/29/22 19:15 01/29/22 19:30 01/29/22 19:00 Temperature Pulse Rate 88 89 Pulse Rate [Right] Respiratory Rate 24 26 H Blood Pressure Blood Pressure [Right Arm] O2 Sat by Pulse Oximetry 92 L 92 L Oxygen Delivery Method Nasal Cannula Oxygen Flow Rate 3 FIO2% 32 01/29/22 19:45 01/29/22 20:00 01/29/22 20:01 Temperature Pulse Rate 97 H 91 H 92 H Pulse Rate [Right] Respiratory Rate 21 16 28 H Blood Pressure Blood Pressure [Right Arm] O2 Sat by Pulse Oximetry 94 L 95 96 Oxygen Delivery Method Oxygen Flow Rate FIO2% 01/29/22 20:01 01/29/22 20:15 01/29/22 20:30 Temperature 98.2 F Pulse Rate 96 H 92 H Pulse Rate [Right] Respiratory Rate 23 27 H Blood Pressure 98/49 Blood Pressure [Right Arm] O2 Sat by Pulse Oximetry 95 95 Oxygen Delivery Method Nasal Cannula Oxygen Flow Rate 3 FIO2% 32 01/29/22 20:45 01/29/22 21:00 01/29/22 21:00 Temperature Pulse Rate 90 101 H Pulse Rate [Right] Respiratory Rate 29 H 28 H Blood Pressure 103/69 Blood Pressure [Right Arm] O2 Sat by Pulse Oximetry 98 95 Oxygen Delivery Method Oxygen Flow Rate FIO2% 01/29/22 20:25 01/29/22 20:25 01/29/22 21:15 Temperature Pulse Rate 92 H 95 H Pulse Rate [Right] Respiratory Rate 26 H Blood Pressure Blood Pressure [Right Arm] O2 Sat by Pulse Oximetry 94 L 95 Oxygen Delivery Method Nasal Cannula Oxygen Flow Rate 3 FIO2% 32 01/29/22 21:30 01/29/22 21:45 01/29/22 22:00 Temperature Pulse Rate 96 H 92 H Pulse Rate [Right] Respiratory Rate 23 23 Blood Pressure 112/67 Blood Pressure [Right Arm] O2 Sat by Pulse Oximetry 94 L 93 L Oxygen Delivery Method Oxygen Flow Rate FIO2% 01/29/22 22:00 01/29/22 22:15 01/29/22 22:30 Temperature Pulse Rate 92 H 90 92 H Pulse Rate [Right] Respiratory Rate 23 24 26 H Blood Pressure Blood Pressure [Right Arm] O2 Sat by Pulse Oximetry 93 L 92 L 95 Oxygen Delivery Method Oxygen Flow Rate FIO2% 01/29/22 22:45 01/29/22 23:00 01/29/22 23:00 Temperature 97.7 F Pulse Rate 88 91 H Pulse Rate [Right] Respiratory Rate 24 25 H Blood Pressure 121/73 Blood Pressure [Right Arm] O2 Sat by Pulse Oximetry 97 97 Oxygen Delivery Method Oxygen Flow Rate FIO2% 01/29/22 23:15 01/29/22 23:30 01/29/22 23:45 Temperature Pulse Rate 92 H 93 H 91 H Pulse Rate [Right] Respiratory Rate 28 H 27 H 25 H Blood Pressure Blood Pressure [Right Arm] O2 Sat by Pulse Oximetry 97 96 95 Oxygen Delivery Method Oxygen Flow Rate FIO2% 01/30/22 00:00 01/30/22 00:00 01/30/22 00:15 Temperature Pulse Rate 92 H 92 H Pulse Rate [Right] Respiratory Rate 27 H 26 H Blood Pressure 123/74 Blood Pressure [Right Arm] O2 Sat by Pulse Oximetry 96 96 Oxygen Delivery Method Oxygen Flow Rate FIO2% 01/30/22 00:30 01/30/22 00:45 01/30/22 01:00 Temperature Pulse Rate 98 H 104 H Pulse Rate [Right] Respiratory Rate 19 31 H Blood Pressure 136/81 Blood Pressure [Right Arm] O2 Sat by Pulse Oximetry 95 96 Oxygen Delivery Method Oxygen Flow Rate FIO2% 01/30/22 01:00 01/30/22 01:15 01/30/22 01:30 Temperature Pulse Rate 95 H 91 H 92 H Pulse Rate [Right] Respiratory Rate 19 22 27 H Blood Pressure Blood Pressure [Right Arm] O2 Sat by Pulse Oximetry 96 96 96 Oxygen Delivery Method Oxygen Flow Rate FIO2% 01/30/22 01:45 01/30/22 02:00 01/30/22 02:00 Temperature Pulse Rate 92 H 92 H Pulse Rate [Right] Respiratory Rate 21 25 H Blood Pressure 122/77 Blood Pressure [Right Arm] O2 Sat by Pulse Oximetry 96 96 Oxygen Delivery Method Oxygen Flow Rate FIO2% 01/30/22 02:15 01/30/22 02:30 01/30/22 02:45 Temperature Pulse Rate 93 H 94 H 92 H Pulse Rate [Right] Respiratory Rate 13 27 H 27 H Blood Pressure Blood Pressure [Right Arm] O2 Sat by Pulse Oximetry 96 93 L 93 L Oxygen Delivery Method Oxygen Flow Rate FIO2% 01/30/22 03:00 01/30/22 03:00 01/30/22 03:15 Temperature Pulse Rate 89 88 Pulse Rate [Right] Respiratory Rate 26 H 28 H Blood Pressure 124/74 Blood Pressure [Right Arm] O2 Sat by Pulse Oximetry 92 L 93 L Oxygen Delivery Method Oxygen Flow Rate FIO2% 01/30/22 03:30 01/30/22 03:46 01/30/22 04:00 Temperature Pulse Rate 90 91 H Pulse Rate [Right] Respiratory Rate 27 H 28 H Blood Pressure 136/86 Blood Pressure [Right Arm] O2 Sat by Pulse Oximetry 92 L 92 L Oxygen Delivery Method Oxygen Flow Rate FIO2% 01/30/22 04:00 01/30/22 04:15 01/30/22 04:30 Temperature Pulse Rate 92 H 105 H 99 H Pulse Rate [Right] Respiratory Rate 30 H 30 H 29 H Blood Pressure Blood Pressure [Right Arm] O2 Sat by Pulse Oximetry 92 L 92 L 95 Oxygen Delivery Method Oxygen Flow Rate FIO2% 01/30/22 04:45 01/30/22 05:00 01/30/22 05:00 Temperature Pulse Rate 97 H 96 H Pulse Rate [Right] Respiratory Rate 25 H 26 H Blood Pressure 110/53 Blood Pressure [Right Arm] O2 Sat by Pulse Oximetry 95 95 Oxygen Delivery Method Oxygen Flow Rate FIO2% 01/30/22 05:15 01/30/22 05:30 01/30/22 05:45 Temperature Pulse Rate 103 H 105 H 100 H Pulse Rate [Right] Respiratory Rate 29 H 26 H 7 L Blood Pressure Blood Pressure [Right Arm] O2 Sat by Pulse Oximetry 93 L 95 96 Oxygen Delivery Method Oxygen Flow Rate FIO2% 01/30/22 06:00 01/30/22 06:00 01/30/22 08:50 Temperature Pulse Rate 95 H Pulse Rate [Right] Respiratory Rate 28 H Blood Pressure 146/79 Blood Pressure [Right Arm] O2 Sat by Pulse Oximetry 98 Oxygen Delivery Method Nasal Cannula Oxygen Flow Rate 3 FIO2% 32 01/30/22 07:00 01/30/22 07:00 01/30/22 07:00 Temperature Pulse Rate 95 H Pulse Rate [Right] Respiratory Rate 22 Blood Pressure 128/77 Blood Pressure [Right Arm] O2 Sat by Pulse Oximetry 94 L Oxygen Delivery Method Nasal Cannula Oxygen Flow Rate 3 FIO2% 32 01/30/22 08:00 01/30/22 08:00 01/30/22 09:00 Temperature Pulse Rate 100 H Pulse Rate [Right] Respiratory Rate Blood Pressure 114/57 144/83 Blood Pressure [Right Arm] O2 Sat by Pulse Oximetry 94 L Oxygen Delivery Method Oxygen Flow Rate FIO2% 01/30/22 09:00 01/30/22 10:00 01/30/22 10:00 Temperature Pulse Rate 104 H 98 H Pulse Rate [Right] Respiratory Rate 23 Blood Pressure 133/81 Blood Pressure [Right Arm] O2 Sat by Pulse Oximetry 93 L 95 Oxygen Delivery Method Oxygen Flow Rate FIO2% 01/30/22 11:00 01/30/22 11:00 01/30/22 12:00 Temperature Pulse Rate 98 H Pulse Rate [Right] Respiratory Rate Blood Pressure 118/59 132/79 Blood Pressure [Right Arm] O2 Sat by Pulse Oximetry 94 L Oxygen Delivery Method Oxygen Flow Rate FIO2% 01/30/22 12:00 01/30/22 13:00 01/30/22 13:00 Temperature Pulse Rate 91 H 86 Pulse Rate [Right] Respiratory Rate 20 24 Blood Pressure 130/79 Blood Pressure [Right Arm] O2 Sat by Pulse Oximetry 95 95 Oxygen Delivery Method Oxygen Flow Rate FIO2% 01/30/22 14:00 01/30/22 14:01 01/30/22 14:01 Temperature Pulse Rate 95 H 92 H Pulse Rate [Right] Respiratory Rate Blood Pressure 124/74 Blood Pressure [Right Arm] O2 Sat by Pulse Oximetry 96 94 L Oxygen Delivery Method Oxygen Flow Rate FIO2% 01/30/22 15:00 01/30/22 15:01 01/30/22 15:01 Temperature Pulse Rate 98 H 94 H Pulse Rate [Right] Respiratory Rate Blood Pressure 115/68 Blood Pressure [Right Arm] O2 Sat by Pulse Oximetry 95 94 L Oxygen Delivery Method Oxygen Flow Rate FIO2% 01/30/22 16:00 01/30/22 16:00 01/30/22 17:00 Temperature 98.4 F Pulse Rate 84 Pulse Rate [Right] Respiratory Rate 25 H Blood Pressure 125/71 119/79 Blood Pressure [Right Arm] O2 Sat by Pulse Oximetry 96 Oxygen Delivery Method Oxygen Flow Rate FIO2% 01/30/22 17:00 01/30/22 18:00 01/30/22 18:00 Temperature Pulse Rate 82 86 Pulse Rate [Right] Respiratory Rate 22 24 Blood Pressure 123/79 Blood Pressure [Right Arm] O2 Sat by Pulse Oximetry 95 95 Oxygen Delivery Method Oxygen Flow Rate FIO2% 01/30/22 19:00 01/30/22 20:00 01/30/22 19:00 Temperature 98.8 F Pulse Rate 80 84 Pulse Rate [Right] Respiratory Rate 22 24 Blood Pressure 122/75 129/83 Blood Pressure [Right Arm] O2 Sat by Pulse Oximetry 96 95 Oxygen Delivery Method Nasal Cannula Oxygen Flow Rate 3 FIO2% 01/30/22 21:00 01/30/22 20:12 01/30/22 20:12 Temperature Pulse Rate 87 88 Pulse Rate [Right] Respiratory Rate 24 Blood Pressure 132/73 Blood Pressure [Right Arm] O2 Sat by Pulse Oximetry 96 96 Oxygen Delivery Method Nasal Cannula Oxygen Flow Rate 3 FIO2% 32 01/30/22 22:00 01/30/22 23:00 01/30/22 19:00 Temperature 98.8 F Pulse Rate 78 79 80 Pulse Rate [Right] Respiratory Rate 26 H 24 24 Blood Pressure 108/62 109/61 122/75 Blood Pressure [Right Arm] O2 Sat by Pulse Oximetry 96 96 96 Oxygen Delivery Method Oxygen Flow Rate FIO2% 01/30/22 20:00 01/30/22 21:00 01/30/22 22:01 Temperature Pulse Rate 90 81 74 Pulse Rate [Right] Respiratory Rate 24 27 H 26 H Blood Pressure 129/83 132/73 108/62 Blood Pressure [Right Arm] O2 Sat by Pulse Oximetry 96 96 96 Oxygen Delivery Method Oxygen Flow Rate FIO2% 01/30/22 23:00 01/31/22 00:00 01/31/22 01:00 Temperature 98.6 F Pulse Rate 78 82 92 H Pulse Rate [Right] Respiratory Rate 22 28 H 17 Blood Pressure 109/61 112/64 117/60 Blood Pressure [Right Arm] O2 Sat by Pulse Oximetry 95 96 95 Oxygen Delivery Method Oxygen Flow Rate FIO2% 01/31/22 02:00 01/31/22 03:00 01/31/22 04:00 Temperature 98.0 F Pulse Rate 92 H 91 H 96 H Pulse Rate [Right] Respiratory Rate 19 30 H 22 Blood Pressure 121/73 110/52 135/77 Blood Pressure [Right Arm] O2 Sat by Pulse Oximetry 95 95 94 L Oxygen Delivery Method Oxygen Flow Rate FIO2% 01/31/22 05:00 01/31/22 06:00 01/31/22 07:00 Temperature Pulse Rate 87 90 Pulse Rate [Right] Respiratory Rate 30 H 23 Blood Pressure 130/71 130/71 Blood Pressure [Right Arm] O2 Sat by Pulse Oximetry 96 95 Oxygen Delivery Method Nasal Cannula Oxygen Flow Rate 3 FIO2% 01/31/22 01:00 01/31/22 01:00 01/31/22 02:00 Temperature Pulse Rate 84 Pulse Rate [Right] Respiratory Rate 28 H Blood Pressure 117/60 121/73 Blood Pressure [Right Arm] O2 Sat by Pulse Oximetry 95 Oxygen Delivery Method Oxygen Flow Rate FIO2% 01/31/22 02:00 01/31/22 03:00 01/31/22 03:00 Temperature Pulse Rate 93 H 92 H Pulse Rate [Right] Respiratory Rate 29 H 30 H Blood Pressure 110/52 Blood Pressure [Right Arm] O2 Sat by Pulse Oximetry 95 95 Oxygen Delivery Method Oxygen Flow Rate FIO2% 01/31/22 04:00 01/31/22 04:01 01/31/22 04:01 Temperature Pulse Rate 101 H 101 H Pulse Rate [Right] Respiratory Rate 42 H 31 H Blood Pressure 135/77 Blood Pressure [Right Arm] O2 Sat by Pulse Oximetry 93 L 94 L Oxygen Delivery Method Oxygen Flow Rate FIO2% 01/31/22 05:00 01/31/22 05:00 01/31/22 06:00 Temperature Pulse Rate 88 Pulse Rate [Right] Respiratory Rate 32 H Blood Pressure 130/71 130/71 Blood Pressure [Right Arm] O2 Sat by Pulse Oximetry 96 Oxygen Delivery Method Oxygen Flow Rate FIO2% 01/31/22 06:00 01/31/22 07:00 01/31/22 07:00 Temperature Pulse Rate 86 84 Pulse Rate [Right] Respiratory Rate Blood Pressure 123/74 Blood Pressure [Right Arm] O2 Sat by Pulse Oximetry 96 95 Oxygen Delivery Method Oxygen Flow Rate FIO2% 01/31/22 08:00 01/31/22 08:00 01/31/22 08:20 Temperature Pulse Rate 91 H Pulse Rate [Right] Respiratory Rate Blood Pressure 138/67 Blood Pressure [Right Arm] O2 Sat by Pulse Oximetry 96 Oxygen Delivery Method Nasal Cannula Oxygen Flow Rate 3 FIO2% 32 01/31/22 08:20 01/31/22 09:00 01/31/22 09:00 Temperature Pulse Rate 91 H 91 H Pulse Rate [Right] Respiratory Rate 28 H Blood Pressure 111/55 Blood Pressure [Right Arm] O2 Sat by Pulse Oximetry 96 96 Oxygen Delivery Method Oxygen Flow Rate FIO2% 01/31/22 10:00 01/31/22 10:00 01/31/22 11:00 Temperature Pulse Rate 83 80 Pulse Rate [Right] Respiratory Rate Blood Pressure 120/65 Blood Pressure [Right Arm] O2 Sat by Pulse Oximetry 96 97 Oxygen Delivery Method Oxygen Flow Rate FIO2% 01/31/22 11:01 01/31/22 11:01 01/31/22 12:00 Temperature Pulse Rate 80 Pulse Rate [Right] Respiratory Rate 27 H Blood Pressure 116/65 103/60 Blood Pressure [Right Arm] O2 Sat by Pulse Oximetry 97 Oxygen Delivery Method Oxygen Flow Rate FIO2% 01/31/22 12:00 01/31/22 13:00 01/31/22 13:00 Temperature Pulse Rate 74 75 Pulse Rate [Right] Respiratory Rate 15 24 Blood Pressure 98/66 Blood Pressure [Right Arm] O2 Sat by Pulse Oximetry 97 96 Oxygen Delivery Method Oxygen Flow Rate FIO2% 01/31/22 14:00 01/31/22 14:00 01/31/22 15:00 Temperature Pulse Rate 71 Pulse Rate [Right] Respiratory Rate Blood Pressure 92/54 99/58 Blood Pressure [Right Arm] O2 Sat by Pulse Oximetry 97 Oxygen Delivery Method Oxygen Flow Rate FIO2% 01/31/22 15:00 01/31/22 16:00 01/31/22 16:00 Temperature Pulse Rate 66 65 Pulse Rate [Right] Respiratory Rate 22 21 Blood Pressure 107/55 Blood Pressure [Right Arm] O2 Sat by Pulse Oximetry 96 96 Oxygen Delivery Method Oxygen Flow Rate FIO2% 01/31/22 17:00 01/31/22 17:00 01/31/22 18:00 Temperature Pulse Rate 68 Pulse Rate [Right] Respiratory Rate 22 Blood Pressure 110/61 113/68 Blood Pressure [Right Arm] O2 Sat by Pulse Oximetry 98 Oxygen Delivery Method Oxygen Flow Rate FIO2% 01/31/22 18:00 01/31/22 19:00 01/31/22 19:00 Temperature Pulse Rate 62 62 Pulse Rate [Right] Respiratory Rate 32 H Blood Pressure 125/72 Blood Pressure [Right Arm] O2 Sat by Pulse Oximetry 97 97 Oxygen Delivery Method Nasal Cannula Oxygen Flow Rate 3 FIO2% 01/31/22 20:00 01/31/22 21:00 01/31/22 22:00 Temperature 97.9 F Pulse Rate 65 64 67 Pulse Rate [Right] Respiratory Rate 28 H 30 H 28 H Blood Pressure 127/67 129/71 134/72 Blood Pressure [Right Arm] O2 Sat by Pulse Oximetry 96 97 98 Oxygen Delivery Method Oxygen Flow Rate FIO2% 01/31/22 23:00 02/01/22 00:00 02/01/22 01:00 Temperature 98.0 F Pulse Rate 65 63 65 Pulse Rate [Right] Respiratory Rate 26 H 30 H 27 H Blood Pressure 127/75 139/65 117/57 Blood Pressure [Right Arm] O2 Sat by Pulse Oximetry 98 96 96 Oxygen Delivery Method Oxygen Flow Rate FIO2% 01/31/22 20:40 01/31/22 20:40 02/01/22 02:00 Temperature Pulse Rate 65 72 Pulse Rate [Right] Respiratory Rate 38 H Blood Pressure 99/60 Blood Pressure [Right Arm] O2 Sat by Pulse Oximetry 96 98 Oxygen Delivery Method Nasal Cannula Oxygen Flow Rate 3 FIO2% 32 02/01/22 03:00 02/01/22 04:00 02/01/22 05:05 Temperature 97.9 F Pulse Rate 79 84 63 Pulse Rate [Right] Respiratory Rate 33 H 33 H 33 H Blood Pressure 125/66 126/67 132/76 Blood Pressure [Right Arm] O2 Sat by Pulse Oximetry 98 94 L 98 Oxygen Delivery Method Oxygen Flow Rate FIO2% 02/01/22 06:00 02/01/22 07:00 01/31/22 19:00 Temperature Pulse Rate 69 Pulse Rate [Right] Respiratory Rate 33 H Blood Pressure 127/77 125/72 Blood Pressure [Right Arm] O2 Sat by Pulse Oximetry 98 Oxygen Delivery Method Nasal Cannula Oxygen Flow Rate 3 FIO2% 01/31/22 19:00 01/31/22 20:00 01/31/22 20:00 Temperature Pulse Rate 64 64 Pulse Rate [Right] Respiratory Rate Blood Pressure 127/67 Blood Pressure [Right Arm] O2 Sat by Pulse Oximetry 97 97 Oxygen Delivery Method Oxygen Flow Rate FIO2% 01/31/22 21:00 01/31/22 21:00 01/31/22 22:00 Temperature Pulse Rate 64 Pulse Rate [Right] Respiratory Rate Blood Pressure 129/71 124/72 Blood Pressure [Right Arm] O2 Sat by Pulse Oximetry 97 Oxygen Delivery Method Oxygen Flow Rate FIO2% 01/31/22 22:00 01/31/22 23:00 01/31/22 23:00 Temperature Pulse Rate 61 65 Pulse Rate [Right] Respiratory Rate 25 H Blood Pressure 127/75 Blood Pressure [Right Arm] O2 Sat by Pulse Oximetry 98 96 Oxygen Delivery Method Oxygen Flow Rate FIO2% 02/01/22 00:00 02/01/22 00:00 02/01/22 01:00 Temperature Pulse Rate 62 Pulse Rate [Right] Respiratory Rate Blood Pressure 109/65 117/57 Blood Pressure [Right Arm] O2 Sat by Pulse Oximetry 96 Oxygen Delivery Method Oxygen Flow Rate FIO2% 02/01/22 01:00 02/01/22 02:00 02/01/22 02:00 Temperature Pulse Rate 61 64 Pulse Rate [Right] Respiratory Rate Blood Pressure 99/60 Blood Pressure [Right Arm] O2 Sat by Pulse Oximetry 96 97 Oxygen Delivery Method Oxygen Flow Rate FIO2% 02/01/22 03:00 02/01/22 03:01 02/01/22 03:01 Temperature Pulse Rate 65 67 Pulse Rate [Right] Respiratory Rate Blood Pressure 125/66 Blood Pressure [Right Arm] O2 Sat by Pulse Oximetry 97 97 Oxygen Delivery Method Oxygen Flow Rate FIO2% 02/01/22 04:00 02/01/22 04:00 02/01/22 05:00 Temperature Pulse Rate 65 Pulse Rate [Right] Respiratory Rate Blood Pressure 126/67 132/76 Blood Pressure [Right Arm] O2 Sat by Pulse Oximetry 97 Oxygen Delivery Method Oxygen Flow Rate FIO2% 02/01/22 05:00 02/01/22 06:00 02/01/22 06:00 Temperature Pulse Rate 63 67 Pulse Rate [Right] Respiratory Rate Blood Pressure 127/77 Blood Pressure [Right Arm] O2 Sat by Pulse Oximetry 98 100 Oxygen Delivery Method Oxygen Flow Rate FIO2% 02/01/22 07:00 02/01/22 07:01 02/01/22 07:01 Temperature Pulse Rate 81 77 Pulse Rate [Right] Respiratory Rate Blood Pressure 154/71 Blood Pressure [Right Arm] O2 Sat by Pulse Oximetry 97 98 Oxygen Delivery Method Oxygen Flow Rate FIO2% 02/01/22 08:45 02/01/22 08:45 02/01/22 08:00 Temperature Pulse Rate 70 Pulse Rate [Right] Respiratory Rate 27 H Blood Pressure Blood Pressure [Right Arm] O2 Sat by Pulse Oximetry 96 97 Oxygen Delivery Method Nasal Cannula Oxygen Flow Rate 3 FIO2% 32 02/01/22 08:01 02/01/22 08:01 02/01/22 09:00 Temperature Pulse Rate 70 Pulse Rate [Right] Respiratory Rate 23 Blood Pressure 119/56 117/68 Blood Pressure [Right Arm] O2 Sat by Pulse Oximetry 97 Oxygen Delivery Method Oxygen Flow Rate FIO2% 02/01/22 09:00 Temperature Pulse Rate 83 Pulse Rate [Right] Respiratory Rate Blood Pressure Blood Pressure [Right Arm] O2 Sat by Pulse Oximetry 91 L Oxygen Delivery Method Oxygen Flow Rate FIO2% Labs: Laboratory Last Values WBC 4.2 X10^3/uL (3.6-10.0) 02/01/22 04:31 RBC 4.97 X10^6/uL (4.7-6.0) 02/01/22 04:31 Hgb 15.2 g/dL (13.5-18.0) 02/01/22 04:31 Hct 42.8 % (42.0-54.0) 02/01/22 04:31 MCV 86.1 fL (80.0-100.0) 02/01/22 04:31 MCH 30.6 pg (27.0-34.0) 02/01/22 04:31 MCHC 35.5 g/dL (33.0-35.0) H 02/01/22 04:31 RDW 13.9 % (11.6-16.5) 02/01/22 04:31 Plt Count 136 X10^3/uL (150.0-450.0) L 02/01/22 04:31 MPV 8.3 fL (7.4-11.0) 02/01/22 04:31 Neut % (Auto) 53.6 % (42.0-75.0) 02/01/22 04:31 Lymph % (Auto) 27.6 % (21.0-51.0) 02/01/22 04:31 [place] % (Auto) 17.2 % (0.0-13.0) H 02/01/22 04:31 Eos % (Auto) 0.9 % (0.9-2.9) 02/01/22 04:31 Baso % (Auto) 0.7 % (0.2-1.0) 02/01/22 04:31 Neut # (Auto) 2.3 x10^3/uL (2.2-4.8) 02/01/22 04:31 Lymph # (Auto) 1.2 X10^3/uL (1.3-2.9) L 02/01/22 04:31 [place] # (Auto) 0.7 x10^3/uL (0.3-0.8) 02/01/22 04:31 Eos # (Auto) 0.0 x10^3/uL (0.0-0.2) 02/01/22 04:31 Baso # (Auto) 0.0 X10^3/uL (0.0-0.1) 02/01/22 04:31 Absolute Nucleated RBC 0.1 /100WBC 02/01/22 04:31 Sodium 135 mmol/L (136-145) L 02/01/22 04:31 Corrected Sodium TNP 02/01/22 04:31 Potassium 3.9 mmol/L (3.5-5.1) 02/01/22 04:31 Chloride 102 mmol/L (98-107) 02/01/22 04:31 Carbon Dioxide 26.5 mmol/L (21-32) 02/01/22 04:31 BUN 8 mg/dL (7-18) 02/01/22 04:31 Creatinine 0.74 mg/dL (0.70-1.30) 02/01/22 04:31 Est GFR (MDRD) Af Amer > 60 (>60) 02/01/22 04:31 Est GFR (MDRD) Non-Af > 60 (>60) 02/01/22 04:31 Glucose 105 mg/dL (65-99) H 02/01/22 04:31 POC Glucose (mg/dL) 104 mg/dL (65-99) H 02/01/22 05:23 Calcium 7.2 mg/dL (8.5-10.1) L 02/01/22 04:31 Corrected Calcium 8.3 mg/dL (8.5-10.1) L 02/01/22 04:31 Magnesium 2.1 mg/dL (1.7-2.9) 01/30/22 05:15 Total Bilirubin 0.30 mg/dL (0.2-1.0) 02/01/22 04:31 AST 29 Units/L (15-37) 02/01/22 04:31 ALT 32 Units/L (12-78) 02/01/22 04:31 Alkaline Phosphatase 89 Units/L (46-116) 02/01/22 04:31 Creatine Kinase 61 Units/L (39-308) 01/31/22 04:40 Troponin I High Sens 83.6 ng/L (4.0-60.0) H* 01/31/22 04:40 B-Natriuretic Peptide 26.4 pg/mL (0-79) 01/27/22 18:30 Total Protein 6.2 g/dL (6.4-8.2) L 02/01/22 04:31 Albumin 2.6 g/dL (3.4-5.0) L 02/01/22 04:31 Globulin 3.6 g/dL (2.5-4.5) 02/01/22 04:31 Albumin/Globulin Ratio 0.7 Ratio (1.1-2.1) L 02/01/22 04:31 Triglycerides 97 mg/dL (0-150) 01/29/22 04:55 Cholesterol 126 mg/dL (0-200) 01/29/22 04:55 LDL Cholesterol, Calc 81 mg/dL (0-100) 01/29/22 04:55 HDL Cholesterol 26 mg/dL (40-60) L 01/29/22 04:55 Cholesterol/HDL Ratio 4.8 (0.0-5.0) 01/29/22 04:55 Free T4 7.40 ng/dL (0.76-1.46) H 01/28/22 17:58 TSH 3rd Generation 0.432 uIU/mL (0.358-3.74) 01/28/22 17:58 Specimen Type Clean catch urine 01/28/22 01:04 Urine Color Dark yellow (YELLOW) 01/28/22 01:04 Urine Appearance Slightly hazy (CLEAR) 01/28/22 01:04 Urine pH 5.0 (5.0 - 8.0) 01/28/22 01:04 Ur Specific Lowry 1.025 (1.000-1.030) 01/28/22 01:04 Urine Protein 3+ (NEGATIVE) 01/28/22 01:04 Urine Glucose (UA) 4+ (NEGATIVE) 01/28/22 01:04 Urine Ketones 1+ (NEGATIVE) 01/28/22 01:04 Urine Blood 2+ (NEGATIVE) 01/28/22 01:04 Urine Nitrite Negative (NEGATIVE) 01/28/22 01:04 Urine Bilirubin Negative (NEGATIVE) 01/28/22 01:04 Urine Urobilinogen Normal (NORMAL) 01/28/22 01:04 Ur Leukocyte Esterase Negative (NEGATIVE) 01/28/22 01:04 Urine RBC 5-10 /HPF (0-3) A 01/28/22 01:04 Urine WBC 0-2 /HPF (0-5) 01/28/22 01:04 Ur Squamous Epith Cells Few /HPF (NEGATIVE) 01/28/22 01:04 Amorphous Sediment 1+ /HPF (NEGATIVE) 01/28/22 01:04 Urine Bacteria Trace /HPF (NEGATIVE) 01/28/22 01:04 Hyaline Casts Many /LPF (NEGATIVE) 01/28/22 01:04 Granular Casts Many /LPF (NEGATIVE) 01/28/22 01:04 Other Casts Few /LPF (NEGATIVE) 01/28/22 01:04 Urine Mucus Numerous /HPF (NEGATIVE) 01/28/22 01:04 Ur Culture Indicated? No/not indicated 01/28/22 01:04 Stool Description 10g unformed brown 01/31/22 09:30 Stool Description 10g unformed brown 01/31/22 09:30 Stl Occult Blood (IFOB) Negative (NEGATIVE) 01/31/22 09:30 Stl C. diff Tox B Gene Negative (NEGATIVE) 01/31/22 09:30 Stl C. diff [id number] Presumptive negative (NEGATIVE) 01/31/22 09:30 Stool H. pylori Ag Negative (NEGATIVE) 01/31/22 09:30 Acetone, Semi-Quant Negative (NEGATIVE) 01/27/22 18:30 SARS-CoV-2 (PCR) Negative (NEGATIVE) 01/27/22 23:18 Cryptosporid parvum Ag Negative (NEGATIVE) 01/31/22 09:30 Giardia lamblia Ag Negative (NEGATIVE) 01/31/22 09:30 Influenza Type A (PCR) Negative (NEGATIVE) 01/27/22 23:18 Influenza Type B (PCR) Negative (NEGATIVE) 01/27/22 23:18 RSV (PCR) Negative (NEGATIVE) 01/27/22 23:18 Reason For Visit: NEW ONSET A FIB WITH RVR, CHEST PAIN, ADN Discharge Diagnosis All Active Problems (Updated 02/07/22 @ 10:53 by Ewelina Waterman) Atrial fibrillation with RVR (Acute) SOB (shortness of breath) (Acute) CAD (coronary artery disease) (Chronic) Diabetes (Chronic) Hypertension (Chronic) COPD (chronic obstructive pulmonary disease) with acute bronchitis (Acute) Plan of Treatment: Continue with present treatment and follow up plan. Pt is to keep follow up appointment as instructed and take medications as ordered. Discharge Medications Discharge Medications: No Known Drug Allergies Allergy (Verified 11/24/18 13:17) CONTINUE taking the following medications albuterol sulfate 90 mcg/actuation aerosol inhaler 1 - 2 inh inhalation PRN PRN 01/27/22 [History] venlafaxine 37.5 mg capsule,extended release 24 hr 1 cap PO DAILY 01/27/22 [History] New Prescriptions apixaban 5 mg tablet (Eliquis) 5 mg PO BID 30 days #60 tabs 02/01/22 [Rx] diltiazem HCl 120 mg capsule,extended release 24 hr 120 mg PO DAILY 30 days #30 caps 02/01/22 [Rx] Discharge Disposition Discharge Disposition: Home Discharge Condition: Stable Discharge Plan Discharge Plan Hospital Course: Mr Perez is a 61y/o male with a PMH of atrial fibrillation, CAD s/p PCI, HTN, HLD, DM and spinal injury and decreased mobility presented with palpitations and SOB. He was found to be in atrial fibrillation with RVR. He was placed in the ICU with telemetry for further evaluation. He was started on Cardizem drip and his HR was monitored closely. All his home medications were reumed. Labs were done daily and electrolytes replaced as needed. Patient converted to NSR. He was switched to PO Cardizem. ECHO was also done which showed EF 63% and mild pulmonary HTN. He sees Dr Shetty and had outpatient stress test a year ago which was normal. He was started on Eliquis 5 mg daily. He denied any hx of GI bleed. He was also treated with IV Rocephin and nebs for bronchitis/COPD exacerbation. He was stable for discharge home. He did not require any supplemental O2 on discharge, O2 sats > 92%. Patient was already taking asa and plavix, last stent over 2 years ago. He was told to stop plavix and only take asa and Eliquis. He will follow up with PCP and cardiology as scheduled. Patient Disposition: HOME, SELF-CARE Condition: Stable Health Concerns: Post Hospitalization: new medications and changes needed to prevent readmission or further decline. Pt educated and given instructions on all concerns. Plan of Treatment: Continue with present treatment and follow up plan. Pt is to keep follow up appointment as instructed and take medications as ordered. Prescriptions: New diltiazem HCl 120 mg Capsule,Extended Release 24hr 120 mg PO DAILY 30 Days Qty: 30 1RF Eliquis 5 mg Tablet 5 mg PO BID 30 Days Qty: 60 0RF Continued venlafaxine 37.5 mg capsule,extended release 24hr 1 cap PO DAILY Label Comments: [NO ORIGINAL SIG] albuterol sulfate 90 mcg/actuation HFA aerosol inhaler 1 - 2 inh INHALATION PRN PRN Label Comments: [NO ORIGINAL SIG] atorvastatin 40 mg Tablet 40 mg PO QHS metformin 500 mg Tablet 500 mg PO BID aspirin [Aspir-81] 81 mg Tablet,Delayed Release (Dr/Ec) 81 mg PO QDAY lisinopril 5 mg Tablet 5 mg PO QDAY omeprazole magnesium [Prilosec OTC] 20 mg Tablet,Delayed Release (Dr/Ec) 20 mg PO QDAY metoprolol tartrate 25 mg Tablet 25 mg PO BID tizanidine 4 mg Capsule 4 mg PO QHS PRN Centrum Silver Men 300-600-300 mcg Tablet 1 tab PO QDAY cyclobenzaprine 10 mg Tablet 10 mg PO TID Qty: 14 0RF tramadol 50 mg Tablet 50 mg PO Q6H PRNQty: 12 0RF Discontinued clopidogrel [Plavix] 75 mg Tablet 75 mg PO QDAY Follow ups/Referrals Follow ups/Referrals: OLY SCHUSTER [Primary Care Provider] - 3 days Instructions Instructions: Blood Glucose Monitoring, Adult, Atrial Fibrillation Activity Restrictions/Additional Instructions: Stop Clopidogrel (Plavix), only take aspirin and Eliquis. Scheduled appointment with PCP and cardiology in one week Stand Alone Forms: Excuse From Work or School, Precautions for COVID19, [facility], Patient Portal, Social Distancing
[2022-02-01 12:21] VITALS: BP 134/73
== END 2022-02-01 13:00 | disposition home or self-care (01) | DRG 309 ==
LOC: ER 18:13 → ICU 01-28 02:49
PROVIDERS: ADMIT Obstetrics & Gynecology Obstetrics; ATTEND Internal Medicine
DX: E11.65 Type 2 diabetes mellitus with hyperglycemia; R94.31 Abnormal electrocardiogram [ECG] [EKG]; R07.89 Other chest pain; J44.1 Chronic obstructive pulmonary disease with (acute) exacerbation; Z20.822 Contact with and (suspected) exposure to COVID-19; E87.1 Hypo-osmolality and hyponatremia; R77.8 Other specified abnormalities of plasma proteins; I48.91 Unspecified atrial fibrillation; R06.02 Shortness of breath; J20.8 Acute bronchitis due to other specified organisms; I10 Essential (primary) hypertension; Z66 Do not resuscitate; I25.10 Atherosclerotic heart disease of native coronary artery without angina pectoris